=== PATIENT | female | born 1995 | race Caucasian/White ===

== ENCOUNTER 2024-06-25 06:40 | Emergency (ER) | payer OTHER ==
[2024-06-25 06:57] VITALS: BP 126/80; O2SAT 100
--- NOTE | 2024-06-25 07:06 | ED Physician Documentation ---
PD HPI SKIN - Stated complaint Stated Complaint: RT LEG PX - Chief complaint Chief Complaint: General - History obtained from History obtained from: Patient - History of Present Illness Timing - onset: How many days ago (11/24) Timing - duration: Days (She states she bit by an insect, probably a bee while bicycling in the evening day before yesterday. Increased redness and swelling and discomfort through into this morning. No discontiguous areas of redness swelling or itching.) Timing - details: Abrupt onset, Still present (increased redness and swelling still into this morning and through days yesterday.) Location: RLE (medial to posterio thigh right.) Quality / character: Itchy, Burning, Discolored (red), Swelling Improved by: No: Benadryl Associated symptoms: No: Fever, Myalgias, N/V/D PD PAST MEDICAL HISTORY - Past Medical History Past Medical History: No - Past Surgical History Past Surgical History: No - Present Medications Home Medications: Ambulatory Orders Medication Instructions Recorded Confirmed Cetirizine [ZyrTEC] 10 mg PO BID #15 tablet 06/25/24 EPINEPHrine [Epinephrine] 0.3 mg IJ ONCE PRN #1 each 06/25/24 dexAMETHasone [Decadron] 4 mg PO DAILY #5 tablet 06/25/24 - Allergies Allergies/Adverse Reactions: Allergies Allergy/AdvReac Type Severity Reaction Status Date / Time No Known Drug Allergies Allergy Verified 06/25/24 06:45 - Social History Does the pt smoke?: No Smoking Status: Never smoker Does the pt drink ETOH?: No Does the pt have substance abuse?: No - Immunizations Immunizations are current?: Yes - POLST Patient has POLST: No PD ED PE NORMAL - Vitals Vital signs reviewed: Yes - General General: Alert and oriented X 3, No acute distress, Well developed/nourished - Derm Derm: Normal color, Warm and dry - Extremities Extremities: Other (medial and posterior right thigh with redness and swelling, some firmness of swelling centrally but no fluctuance. N o inguinal adenopathy. ) - Neuro Neuro: No motor deficit, No sensory deficit Results - Vitals Vitals: Vital Signs - 24 hr 06/25/24 06:45 Temperature 36.3 C L Heart Rate 64 Respiratory 16 Rate Blood Pressure 126/80 O2 Saturation 100 Oxygen O2 Source Room air PD Medical Decision Making - ED course Complexity details: considered differential (She did feel the insect bite initially so presumably a bee. Time course for a bee sting would still reasonably be increasing over the 1-1/2 days. Of little bit early for her to be cellulitic at this point. Will treat it as a prolonged local venom response.), d/w patient Departure - Departure Disposition: 01 Home, Self Care Clinical Impression: Local reaction to bee sting Condition: Stable Record reviewed to determine appropriate education?: Yes Instructions: ED Bite Sting Insect Local Allergic React Follow-Up: [facility] [Provider Group] Prescriptions: dexAMETHasone [Decadron] 4 mg PO DAILY #5 tablet EPINEPHrine [Epinephrine] 0.3 mg IJ ONCE PRN #1 each PRN Reason: Anaphylaxis Cetirizine [ZyrTEC] 10 mg PO BID #15 tablet Comments: Given the timing of your symptoms from the bee sting till now, it would still be mainly in the timeframe of a local allergic reaction to the venom. It would be rather early to be an infection to at this point. Even though your symptoms are increasing some it still is a local reaction given that it is all connected/contiguous to the area of the bee sting. As such it is low likelihood of a generalized reaction and not predictive of necessarily needing to be carrying EpiPen etc. That said there is no harm in carrying an EpiPen when you are outdoors and I did write a prescription for you in case. For this current episode, I would add a steroid medication daily and that should help decrease the reaction to the venom itself. Continue with some antihistamines. Add nonsedating cetirizine twice daily over the next several days to week and Benadryl every 6 hours as needed for itchiness. Topical treatment such as lidocaine or benzocaine are available [id number] and could be used in the area as well. I [facility] your [facility] Recheck if not improving well over the next couple of days and resolved. If you do have some improvement and then a resurgence, there would be concern for infection at that point. Forms: PCP List Discharge Date/Time: 06/25/24 07:21
[2024-06-25] MEDS: dexAMETHasone 4 MG TABLET PO STA (07:19)
[2024-06-25] MEDS: CETIRIZINE 10 MG TABLET PO STA (07:20)
== END 2024-06-25 07:21 | disposition home or self-care (01) ==
LOC: ED 06:40
DX: T63.441A Toxic effect of venom of bees, accidental (unintentional), initial encounter (principal)
CPT/HCPCS: 99283; A9270; J8540